=== PATIENT | female | born 1970 | race Caucasian/White ===

== ENCOUNTER → 2021-04-17 | Outpatient (CLI) | payer OTHER | END | disposition home or self-care (01) | LOC: COVID19 18:46 | PROVIDERS: ATTEND Student in an Organized Health Care Education/Training Program | DX: Z11.52 Encounter for screening for COVID-19 (principal) ==

== ENCOUNTER → 2021-04-25 | Outpatient (CLI) | payer OTHER | END | disposition home or self-care (01) | LOC: COVID19 17:39 | PROVIDERS: ATTEND Internal Medicine | DX: U07.1 COVID-19 (principal) ==